=== PATIENT | female | born 1945 ===

== ENCOUNTER 2017-10-08 14:34 | Emergency (ER) | payer MEDICAID ==
[2017-10-08 15:06] VITALS: TEMP 98.6
[2017-10-08] MEDS ORDERED: Sodium Chloride 0.9% 500 ML IV ONE ×2 (15:21→15:59)
[2017-10-08 15:43] LABS: BASO # 0.1 K/uL (0.0-0.2); EOS # 0.2 K/uL (0.0-0.7); EOS % 3.1 % (0.0-4.0); HEMOGLOBIN 11.2 g/dL (11.0-16.0); LYMPH # 4.3 K/uL (1.0-4.3); LYMPH % 60.5 % (20.0-40.0); MEAN CELL VOLUME 91.3 fL (81.0-99.0); MEAN CORPUSCULAR HEMOGLOBIN 29.3 pg (27.0-31.0); MEAN CORPUSCULAR HGB CONC 32.1 g/dL (33.0-37.0); MEAN PLATELET VOLUME 7.5 fL (7.2-11.7); MONO # 0.8 K/uL (0.0-0.8); MONO % 11.2 % (0.0-10.0); NEUT # 1.7 K/uL (1.8-7.0); NEUT % 24.2 % (50.0-75.0); NRBC % 0.1 % (0.0-2.0); RBC 3.81 Mil/uL (3.80-5.20); WHITE BLOOD COUNT 7.1 K/uL (4.8-10.8)
[2017-10-08] MEDS ORDERED: Sodium Chloride 0.9% 0 ML ONE (15:46)
[2017-10-08 15:50] LABS: INR 1.1; PROTHROMBIN TIME 11.5 SECONDS (9.7-12.2)
[2017-10-08 15:54] LABS: ALB/GLOB RATIO 1.2 (1.0-2.1); ALBUMIN 4.3 g/dL (3.5-5.0); ALT/SGPT 38 U/L (9-52); AST/SGOT 25 U/L (14-36); BLOOD UREA NITROGEN 17 mg/dL (7-17); CALCIUM 9.8 mg/dl (8.6-10.4); GFR AFRICAN-AMERICAN > 60; GFR NON-AFRICAN AMERICAN > 60; LIPASE 65 U/L (23-300)
--- NOTE | 2017-10-08 16:15 | C.PDOC ---
History Of Present Illness 72yo female with history of hypertension, diabetes, sent to ER for evaluation of flank pain, dysuria, or nausea x a couple days. Patient denies any chest pain , shortness of breath, weakness, or numbness. She offers no other medical complaints. PMD: Dr. Rossi Time Seen by Provider: 10/08/17 15:17 Chief Complaint (Nursing): Back Pain History Per: Patient History/Exam Limitations: no limitations Onset/Duration Of Symptoms: Days Current Symptoms Are (Timing): Still Present Quality Of Discomfort: "Pain" Associated Symptoms: denies: Incontinence, New Weakness, New Numbness Recent travel outside of the [facility]: Yes Additional History Per: Patient Past Medical History Reviewed: Historical Data, Nursing Documentation, Vital Signs Vital Signs: Last Vital Signs Temp 98.6 F 10/08/17 15:02 Pulse 78 10/08/17 17:15 Resp 16 10/08/17 17:15 BP 134/85 10/08/17 17:15 Pulse Ox 98 10/08/17 17:15 - Medical History PMH: No Chronic Diseases Surgical History: No Surg Hx Family History: States: No Known Family Hx - Social History Hx Alcohol Use: No Hx Substance Use: No - Immunization History Hx Tetanus Toxoid Vaccination: No Hx Influenza Vaccination: Yes Hx Pneumococcal Vaccination: Yes Review Of Systems Constitutional: Negative for: Fever, Chills Cardiovascular: Negative for: Chest Pain Respiratory: Negative for: Shortness of Breath Gastrointestinal: Positive for: Nausea Genitourinary: Positive for: Dysuria Musculoskeletal: Positive for: Back Pain (bilateral flank pain) Physical Exam - Physical Exam Appears: Non-toxic, No Acute Distress Skin: Normal Color, Warm, Dry Head: Normacephalic Eye(s): bilateral: Normal Inspection Neck: Normal ROM, Supple Chest: Symmetrical Cardiovascular: Rhythm Regular Respiratory: Normal Breath Sounds Gastrointestinal/Abdominal: Soft, No Tenderness Back: CVA Tenderness (bilateral), No Vertebral Tenderness Neurological/Psych: Oriented x3 ED Course And Treatment - Laboratory Results Result Diagrams: 10/08/17 15:36 10/08/17 15:36 O2 Sat by Pulse Oximetry: 100 (RA) Pulse Ox Interpretation: Normal Progress Note: CT Abdomen/Pelvis, Labs, and UA ordered. Patient given IV Fluids , Toradol and Zofran. 1652 Labs reviewed, indicates a UTI Disposition - Disposition Referrals: [facility] [Outside] [facility] [Outside] Disposition: HOME/ ROUTINE Disposition Time: 05:00 Condition: GOOD Additional Instructions: follow up with your doctor. return to er with worsening symptoms or concerns. you should take the antibiotics by mouth, but return immediately with any worsening symptoms or concerns for possible iv antibiotics Prescriptions: Cefpodoxime [Vantin] 100 mg PO BID #20 tab Instructions: Urinary Tract Infection, Adult (DC), Flank Pain, Kidney Infection (DC) Forms: [employer] (Bahraini) Print Language: BULGARIAN - Clinical Impression Clinical Impression: UTI (urinary tract infection), Flank pain - Scribe Statement The provider has reviewed the documentation as recorded by the Rosa M Hernandez Provider Attestation: All medical record entries made by the Rosa M were at my direction and personally dictated by me. I have reviewed the chart and agree that the record accurately reflects my personal performance of the history, physical exam, medical decision making, and the department course for this patient. I have also personally directed, reviewed, and agree with the discharge instructions and disposition.
--- NOTE | 2017-10-08 16:33 | CT ---
Date of service: 10/08/2017 PROCEDURE: CT Abdomen and Pelvis without intravenous contrast HISTORY: b/l flank pain COMPARISON: CT scan of the abdomen and pelvis dated 01/22/2011. TECHNIQUE: Contiguous images were obtained from the domes of the diaphragms to the upper thighs without the administration of intravenous contrast. Oral contrast was not administered. Radiation dose: Total exam DLP = 375.3 mGy-cm. This CT exam was performed using one or more of the following dose reduction techniques: Automated exposure control, adjustment of the mA and/or kV according to patient size, and/or use of iterative reconstruction technique. FINDINGS: LOWER THORAX: No focal consolidation or pleural effusion. Heart size normal. Coronary arterial and valvular calcifications. LIVER: Unremarkable. No gross lesion or ductal dilatation. GALLBLADDER AND BILE DUCTS: Unremarkable. PANCREAS: Unremarkable. No gross lesion or ductal dilatation. SPLEEN: Unremarkable. ADRENALS: Unremarkable. No mass. KIDNEYS AND URETERS: Stable nonobstructive 1.2 x 1.0 cm left interpolar calculus. Stable nonobstructive 1.5 x 0.8 cm left lower pole calculus. No hydronephrosis. No solid mass. VASCULATURE: Unremarkable. No aortic aneurysm. BOWEL: Unremarkable. No obstruction. No gross mural thickening. APPENDIX: Unremarkable. Normal appendix. PERITONEUM: Unremarkable. No free fluid. No free air. LYMPH NODES: Unremarkable. No enlarged lymph nodes. BLADDER: Unremarkable. REPRODUCTIVE: Unremarkable. BONES: No acute fracture. OTHER FINDINGS: None. IMPRESSION: Stable large left-sided nonobstructive renal calculi. No obstructive uropathy or evidence of recently passed genitourinary calculus.
[2017-10-08 16:38] LABS: SQUAMOUS EPITHIAL 3 /hpf (0-5); URINE BACTERIA RARE (<OCC); URINE BILIRUBIN NEGATIVE (NEGATIVE); URINE BLOOD 1+ (NEGATIVE); URINE CLARITY Clear (Clear); URINE COLOR Yellow (YELLOW); URINE GLUCOSE (UA) NORMAL (Normal); URINE LEUKOCYTE ESTERASE 3+ Leu/uL (Negative); URINE PROTEIN NEGATIVE (NEGATIVE); URINE UROBILINOGEN NORMAL mg/dL (0.2-1.0)
[2017-10-08] MEDS ORDERED: cefTRIAXone IV 1 gm in Dextros 50 ML IVPB ONE ×2 (16:48→17:06)
[2017-10-08 17:16] VITALS: BP 134/85; PULSE 78; RESP 16
[2017-10-10 16:00] VITALS: O2SAT 100
== END 2017-10-08 17:16 | disposition home or self-care (01) ==
LOC: C.ER 14:34
DX: N39.0 Urinary tract infection, site not specified (principal); R10.9 Unspecified abdominal pain
CPT/HCPCS: 74176; 80053; 81001; 82948; 83690; 85025; 85610; 85730; 87086; 87181; 96361; 96374; 96375; 99284; J0696; J1885; J2405; J7040

== ENCOUNTER 2018-01-21 10:46 | Day surgery (SDC) | payer MEDICAID ==
[2017-11-25 09:53] VITALS: BMI 36.9
[~2018-01-21 10:46] MED LIST: Ciprofloxacin 0.3% OPTH SOLN OD SCH; Cyclopentolate 1% Opth (2 ml) OD SCH; Ketorolac Tromethamine 0.5% Opth Soln (3 ml) OD SCH; Lactated Ringer's 500 ML IV ONE; Lidocaine 2% MPF (5 ml) Inj ONE; Ofloxacin 0.3% Ophth Soln OD SCH; Phenylephrine 2.5% Opht Soln OD SCH; Tropicamide 0.5% Opht Sol OD SCH
[2018-01-21] MEDS ORDERED: Lactated Ringer's 500 ML IV ONE (11:30)
[2018-01-21] MEDS ORDERED: Chondroitin/Hyaluronate Opth Syringe KIT (0.55 ml-0.5 ml) IO ONE (14:01)
[2018-01-21] MEDS ORDERED: Tobramycin/Dexamethasone OPHT OINT ONE (14:01)
[2018-01-21] MEDS ORDERED: Tetracaine 0.5% Ophth (OR ONLY) ONE (14:01)
[2018-01-21] MEDS ORDERED: Tobramycin/Dexamethasone (Tobradex) Opth Sol (2.5 ml) ONE (14:02)
[2018-01-21] MEDS ORDERED: Carbachol 0.01% IO ONE (14:02)
[2018-01-21] MEDS ORDERED: Propofol 10 mg/ml Inj (20 ML) ONE (14:45)
[2018-01-21 14:50] VITALS: RESP 17
[2018-01-21 16:06] VITALS: BP 142/60; PULSE 69; TEMP 97.7; O2SAT 98
--- NOTE | 2018-01-22 13:49 | OP ---
PROCEDURE DATE: 01/21/2018 PREOPERATIVE DIAGNOSIS: Cataract right eye. POSTOPERATIVE DIAGNOSIS: Cataract right eye. OPERATIVE PROCEDURE: Cataract extraction with implant right eye. ANESTHESIA TYPE: Local, standby. SURGEON: Watson Akers MD. COMPLICATIONS: None. PROCEDURE: Local anesthesia was achieved using a mixture of 1% lidocaine and Amphadase. The patient was then prepped and draped in the usual sterile fashion for ophthalmic surgery. Betadine drops were placed into the eye. A lid speculum was used and a sideport incision was made using a 15 degree blade. Viscoelastic was used to fill the anterior chamber and a 2.7 millimeter slit blade was used to create a surgical opening. Additional viscoelastic was placed into the eye and a capsulorrhexis was performed. Hydrodissection and delineation were then carried out. Phacoemulsification of the nucleus was performed with ease and cortical cleanup was achieved without difficulty. The capsular bag was refilled using viscoelastic and a posterior chamber lens was inserted through the existing wound and placed into the capsular bag and easily centered. All viscoelastic was then aspirated from the eye and Miochol was instilled for good symmetric pupillary constriction. The sideport wound was hydrated as necessary and a good watertight closure was observed at the conclusion of the case. A TobraDex soaked collagen shield was then placed over the eye. The lid speculum was removed. TobraDex ointment was placed onto the eye and a patch and shield were placed. The patient tolerated the procedure well. Watson Akers MD
== END 2018-01-21 15:40 | disposition home or self-care (01) ==
LOC: C.SDS 10:46
PROVIDERS: ATTEND Ophthalmology
DX: H25.11 Age-related nuclear cataract, right eye (principal)
CPT/HCPCS: 66984; 82948; J2704; J7120; V2632

== ENCOUNTER 2018-02-28 17:27 | Inpatient (IN) | payer MEDICAID ==
[2018-02-28 17:27] VITALS: BMI 36.9
--- NOTE | 2018-02-28 18:01 | C.PDOC ---
History Of Present Illness 72 y/o female brought in by family for evaluation s/p 3 episodes of syncope since 5:00am this morning. Associated with dizziness. Patient also complains of right-sided neck pain and right shoulder pain that radiate down to the elbow for the past 2-3 days. Patient also states she has been experiencing shivers and chills. She notes during these episodes, her blood sugar was checked at home and found to be low, lowest was 76. Patient states sugar usually averages 200. Family did not check temperature at home. Otherwise family denies any focal weakness, slurred speech, facial droop, SOB, visual loss, vomiting, or other complaints. <Rebecca Ureña - Last Filed: 02/28/18 18:48> History Per: Patient History/Exam Limitations: no limitations Onset/Duration Of Symptoms: Days Current Symptoms Are (Timing): Still Present <Rebecca Ureña - Last Filed: 02/28/18 18:48> <Sohan Olsen - Last Filed: 02/28/18 20:04> Time Seen by Provider: 02/28/18 17:51 Chief Complaint (Nursing): Dizziness/Lightheaded Past Medical History Reviewed: Historical Data, Nursing Documentation, Vital Signs Vital Signs: Last Vital Signs Temp 97.9 F 02/28/18 17:48 Pulse 72 02/28/18 17:48 Resp 18 02/28/18 17:48 BP 154/80 H 02/28/18 17:48 Pulse Ox 96 02/28/18 17:48 - Medical History PMH: HTN, Hypercholesterolemia, Kidney Stones, Chronic Kidney Disease Surgical History: Appendectomy, Endoscopy, Hernia Repair, Family History: States: No Known Family Hx - Social History Hx Alcohol Use: No Hx Substance Use: No - Immunization History Hx Tetanus Toxoid Vaccination: No Hx Influenza Vaccination: Yes Hx Pneumococcal Vaccination: Yes <NiranjanRebecca - Last Filed: 02/28/18 18:48> Vital Signs: Last Vital Signs Temp 97.9 F 02/28/18 17:48 Pulse 72 02/28/18 17:48 Resp 18 02/28/18 17:48 BP 154/80 H 02/28/18 17:48 Pulse Ox 96 02/28/18 18:48 <Sohan Olsen - Last Filed: 02/28/18 20:04> Review Of Systems Except As Marked, All Systems Reviewed And Found Negative. Constitutional: Positive for: Chills, Other ("shivers"). Negative for: Fever Eyes: Negative for: Vision Change Cardiovascular: Negative for: Chest Pain Respiratory: Negative for: Shortness of Breath Gastrointestinal: Negative for: Vomiting, Abdominal Pain, Diarrhea Musculoskeletal: Positive for: Neck Pain, Shoulder Pain Neurological: Positive for: Dizziness, Other (Syncope). Negative for: Weakness, Numbness, Change in Speech, Confusion, Altered Mental Status <Rebecca Ureña - Last Filed: 02/28/18 18:48> Physical Exam - Physical Exam Appears: Non-toxic, No Acute Distress, Other (Anxious appearing) Skin: Normal Color, Warm, Dry Head: Atraumatic, Normacephalic Eye(s): bilateral: Normal Inspection, PERRL, EOMI Oral Mucosa: Moist Neck: Normal ROM, No Midline Cervical Tenderness, No Paracervical Tenderness, Supple Chest: Symmetrical Cardiovascular: Rhythm Regular, No Murmur Respiratory: Normal Breath Sounds, No Rales, No Rhonchi, No Wheezing, Other (NARD) Gastrointestinal/Abdominal: Soft, No Tenderness, No Distention Back: Normal Inspection Extremity: Bilateral: Atraumatic, Normal Color And Temperature, Normal ROM (with good ROM of right shoulder, no bony point tenderness) Pulses: Left Radial: Normal, Right Radial: Normal Neurological/Psych: Oriented x3, Normal Speech, Normal Cranial Nerves, Other (No focal deficits) <Rebecca Ureña - Last Filed: 02/28/18 18:48> ED Course And Treatment ECG: Interpreted By Me, Viewed By Me ECG Rhythm: Sinus Rhythm, L BBB Rate From EC O2 Sat by Pulse Oximetry: 96 (RA) Pulse Ox Interpretation: Normal - Radiology CXR: Interpreted by Me (NEG) <NiranjanRebecca - Last Filed: 02/28/18 18:48> - Laboratory Results Result Diagrams: 02/28/18 19:14 02/28/18 19:14 ECG: Interpreted By Me, Viewed By Me <Sohan Olsen - Last Filed: 02/28/18 20:04> Progress - Data Reviewed Data Reviewed: Lab, Diagnostic imaging, EKG, Old records <NiranjanRebecca Ann-Marie Last Filed: 02/28/18 18:48> NIHSS Stroke Scale - Date/Time Evaluation Performed Date Performed: 02/28/18 Time Performed: 09:10 When Was NIHSS Performed: Baseline - How Severe is the Stroke Level of Consciousness: 0=Alert LOC to Questions: 0=Both comments correct LOC to commands: 0=Obeys both correctly Best Gaze: 0=Normal Visual: 0=No visual loss Facial: 0=Normal Motor Arm - Left: 0=No drift Motor Arm - Right: 0=No drift Motor Leg - Left: 0=No drift Motor Leg - Right: 0=No drift Limb Ataxia: 0=Absent Sensory: 0=Normal Best Language: 0=No aphasia Dysarthia: 0=Normal articulation Extinction & Inattention (Neglect): 0=Normal, no object Score: 0 <Sohan Olsen - Last Filed: 02/28/18 20:04> Medical Decision Making Medical Decision Making: Impression: Dizziness, Syncope Right neck and shoulder pain Plan: --EKG --Blood work --Urinalysis --Chest x-ray --Toradol 30 mg IV --Tramadol 50 mg PO --CT Head without contrast --Reassess <Rebecca Ureña - Last Filed: 02/28/18 18:48> Disposition - Disposition Disposition Time: 18:45 <Rebecca Ureña - Last Filed: 02/28/18 18:48> Discussed With : Carlos TRIPP Present On Arrival: None <Sohan Olsen - Last Filed: 02/28/18 20:04> - Disposition Disposition: HOSPITALIZED Condition: STABLE Forms: [employer] (Brazilian) - Clinical Impression Clinical Impression: Syncope, Diabetes mellitus, Chronic cerebral ischemia, Hypertension, Hyperlipidemia - Scribe Statement The provider has reviewed the documentation as recorded by the Rosa M Werner Provider Attestation: All medical record entries made by the Sulemaibe were at my direction and personally dictated by me. I have reviewed the chart and agree that the record accurately reflects my personal performance of the history, physical exam, medical decision making, and the department course for this patient. I have also personally directed, reviewed, and agree with the discharge instructions and disposition. <Rebecca Ureña - Last Filed: 02/28/18 18:48> Physician Patient Turnover Patient Signed Over To: Sohan Olsen Handoff Comments: FU LABS, CT, DISPO <Rebecca Ureña - Last Filed: 02/28/18 18:48>
--- NOTE | 2018-02-28 18:44 | CT ---
Date of service: 02/28/2018 PROCEDURE: CT HEAD WITHOUT CONTRAST. HISTORY: syncope COMPARISON: None available. TECHNIQUE: Axial computed tomography images were obtained through the head/brain without intravenous contrast. Radiation dose: Total exam DLP = 944.79 mGy-cm. This CT exam was performed using one or more of the following dose reduction techniques: Automated exposure control, adjustment of the mA and/or kV according to patient size, and/or use of iterative reconstruction technique. FINDINGS: HEMORRHAGE: No intracranial hemorrhage. BRAIN: Diffuse atrophy with prominence of the ventricles and sulci noted. No mass effect or edema. Right MCA territory cystic encephalomalacia (temporal and parietal lobes). VENTRICLES: No hydrocephalus. CALVARIUM: Unremarkable. PARANASAL SINUSES: Unremarkable as visualized. No significant inflammatory changes. MASTOID AIR CELLS: Unremarkable as visualized. No inflammatory changes. OTHER FINDINGS: None. IMPRESSION: Right MCA territory (temporal and parietal lobes) encephalomalacia consistent with chronic ischemic infarction. Correlate clinically. Please note that MRI with diffusion imaging is more sensitive in the detection of acute ischemic event.
--- NOTE | 2018-02-28 18:48 | RAD ---
Date of service: 02/28/2018 PROCEDURE: CHEST RADIOGRAPH, 1 VIEW HISTORY: syncope COMPARISON: None available. FINDINGS: LUNGS: Clear. PLEURA: No pneumothorax or pleural fluid seen. CARDIOVASCULAR: Atherosclerotic calcifications identified primarily aortic arch. No radiographic findings to suggest acute or significant cardiovascular disease. OSSEOUS STRUCTURES: No significant abnormalities. VISUALIZED UPPER ABDOMEN: Normal. OTHER FINDINGS: None. IMPRESSION: No active disease. Concordant results with the preliminary interpretation rendered by the emergency department physician procedure.
[2018-02-28 19:34] LABS: BASO # 0.1 K/uL (0.0-0.2); BASO % 1.5 % (0.0-2.0); EOS # 0.1 K/uL (0.0-0.7); EOS % 2.5 % (0.0-4.0); HEMOGLOBIN 10.9 g/dL (11.0-16.0); LYMPH # 2.4 K/uL (1.0-4.3); LYMPH % 51.1 % (20.0-40.0); MEAN CELL VOLUME 91.4 fL (81.0-99.0); MEAN CORPUSCULAR HEMOGLOBIN 29.6 pg (27.0-31.0); MEAN CORPUSCULAR HGB CONC 32.4 g/dL (33.0-37.0); MONO # 0.5 K/uL (0.0-0.8); MONO % 9.7 % (0.0-10.0); NEUT # 1.6 K/uL (1.8-7.0); NEUT % 35.2 % (50.0-75.0); RBC 3.68 Mil/uL (3.80-5.20); RED CELL DISTRIBUTION WIDTH 14.4 % (11.5-14.5); WHITE BLOOD COUNT 4.7 K/uL (4.8-10.8)
[2018-02-28 19:46] LABS: ALB/GLOB RATIO 1.2 (1.0-2.1); ALBUMIN 3.9 g/dL (3.5-5.0); ALT/SGPT 35 U/L (9-52); AST/SGOT 36 U/L (14-36); BLOOD UREA NITROGEN 19 mg/dL (7-17); CALCIUM 9.2 mg/dl (8.6-10.4); GFR NON-AFRICAN AMERICAN > 60
--- NOTE | 2018-02-28 20:26 | CP.PCM.HP ---
History of Present Illness - History of Present Illness History of Present Illness: 72 y/o female brought in by family for evaluation s/p 3 episodes of syncope since 5:00am this morning. Associated with dizziness. Patient also complains of right-sided neck pain and right shoulder pain that radiate down to the elbow for the past 2-3 days. Patient also states she has been experiencing shivers and chills. She notes during these episodes, her blood sugar was checked at home and found to be low, lowest was 76. Patient states sugar usually averages 200. Family did not check temperature at home. Otherwise family denies any focal weakness, slurred speech, facial droop, SOB, visual loss, vomiting, or other complaints. Present on Admission - Present on Admission Any Indicators Present on Admission: No Review of Systems - Review of Systems All systems: reviewed and no additional remarkable complaints except (near syncopy) Past Patient History - Past Medical History & Family History Past Medical History?: Yes - Past Social History Smoking Status: Never Smoked - CARDIAC Hx Hypercholesterolemia: Yes Hx Hypertension: Yes - PULMONARY Hx Respiratory Disorders: No - NEUROLOGICAL Hx Neurological Disorder: No - HEENT Hx HEENT Problems: Yes Hx Cataracts: Yes - RENAL Hx Chronic Kidney Disease: Yes Hx Kidney Stones: Yes - ENDOCRINE/METABOLIC Hx Endocrine Disorders: Yes Hx Diabetes Mellitus Type 2: Yes - HEMATOLOGICAL/ONCOLOGICAL Hx Blood Disorders: No - INTEGUMENTARY Hx Dermatological Problems: Yes (SKIN DISCOLORIZATION ARMS) - MUSCULOSKELETAL/RHEUMATOLOGICAL Hx Musculoskeletal Disorders: Yes Hx Osteoarthritis: Yes - GENITOURINARY/GYNECOLOGICAL Hx Genitourinary Disorders: Yes Hx Urinary Tract Infection: Yes - PSYCHIATRIC Hx Substance Use: No - SURGICAL HISTORY Hx Appendectomy: Yes - ANESTHESIA Hx Anesthesia: Yes Hx Anesthesia Reactions: No Hx Malignant Hyperthermia: No Meds Allergies/Adverse Reactions: Allergies Allergy/AdvReac Type Severity Reaction Status Date / Time No Known Allergies Allergy Verified 02/28/18 17:39 Physical Exam - Head Exam Head Exam: ATRAUMATIC - Eye Exam Eye Exam: EOMI, Normal appearance, PERRL - ENT Exam ENT Exam: Mucous Membranes Moist, Normal Exam - Neck Exam Neck exam: Positive for: Normal Inspection - Respiratory Exam Respiratory Exam: Clear to Auscultation Bilateral, NORMAL BREATHING PATTERN - Cardiovascular Exam Cardiovascular Exam: REGULAR RHYTHM - GI/Abdominal Exam GI & Abdominal Exam: Normal Bowel Sounds, Soft. absent: Tenderness - Extremities Exam Extremities exam: Positive for: normal inspection - Neurological Exam Neurological exam: Alert, CN II-XII Intact, Normal Gait, Oriented x3, Reflexes Normal - Skin Skin Exam: Dry, Intact, Normal Color, Warm Results - Vital Signs Recent Vital Signs: Last Vital Signs Temp 98.2 F 02/28/18 19:34 Pulse 69 02/28/18 19:34 Resp 16 02/28/18 19:34 BP 152/65 H 02/28/18 19:34 Pulse Ox 99 02/28/18 19:34 - Labs Result Diagrams: 02/28/18 19:14 02/28/18 19:14 Labs: Laboratory Results - last 24 hr 02/28/18 02/28/18 02/28/18 17:43 19:14 19:14 WBC 4.7 L RBC 3.68 L Hgb 10.9 L Hct 33.6 L MCV 91.4 MCH 29.6 MCHC 32.4 L RDW 14.4 Plt Count 265 MPV 8.0 Neut % (Auto) 35.2 L Lymph % (Auto) 51.1 H [place] % (Auto) 9.7 Eos % (Auto) 2.5 Baso % (Auto) 1.5 Neut # (Auto) 1.6 L Lymph # (Auto) 2.4 [place] # (Auto) 0.5 Eos # (Auto) 0.1 Baso # (Auto) 0.1 Sodium 137 Potassium 4.5 Chloride 106 Carbon Dioxide 24 Anion Gap 12 BUN 19 H Creatinine 0.8 Est GFR ( Amer) > 60 Est GFR (Non-Af Amer) > 60 POC Glucose (mg/dL) 222 H Random Glucose 203 H Calcium 9.2 Total Bilirubin 0.4 AST 36 D ALT 35 Alkaline Phosphatase 77 Troponin I 0.0120 Total Protein 7.1 Albumin 3.9 Globulin 3.2 Albumin/Globulin Ratio 1.2 Assessment & Plan (1) Syncope Status: Acute (2) Diabetes mellitus Status: Chronic (3) Hyperlipidemia Status: Chronic (4) Hypertension Status: Chronic
[2018-02-28] MEDS ORDERED: Home Med 1 UNIT (Atorvastatin Calcium [Atorvastatin Calcium] 20 MG) PO SCH (22:00)
[2018-02-28] MEDS: (Novolin R) Insulin Human Regular 100 units/ml vial SC SCH (22:42)
[2018-02-28] MEDS: Insulin Detemir 100 units/ml Vial (Levemir) SC SCH (22:42)
[2018-02-28] MEDS ORDERED: Pneumococcal 23-Valent Vaccine IM ONE (23:08)
[2018-03-01 02:32] VITALS: RESP 20
[2018-03-01 06:43] LABS: BASO % 0.7 % (0.0-2.0); EOS # 0.2 K/uL (0.0-0.7); EOS % 3.1 % (0.0-4.0); HEMOGLOBIN 11.8 g/dL (11.0-16.0); LYMPH # 3.2 K/uL (1.0-4.3); LYMPH % 62.9 % (20.0-40.0); MEAN CELL VOLUME 92.3 fL (81.0-99.0); MEAN CORPUSCULAR HEMOGLOBIN 30.3 pg (27.0-31.0); MEAN CORPUSCULAR HGB CONC 32.8 g/dL (33.0-37.0); MEAN PLATELET VOLUME 7.9 fL (7.2-11.7); MONO # 0.5 K/uL (0.0-0.8); MONO % 10.4 % (0.0-10.0); NEUT # 1.1 K/uL (1.8-7.0); NEUT % 22.9 % (50.0-75.0); RBC 3.89 Mil/uL (3.80-5.20); RED CELL DISTRIBUTION WIDTH 14.5 % (11.5-14.5)
[2018-03-01 06:59] LABS: ALB/GLOB RATIO 1.2 (1.0-2.1); ALBUMIN 3.9 g/dL (3.5-5.0); ALT/SGPT 32 U/L (9-52); AST/SGOT 27 U/L (14-36); BLOOD UREA NITROGEN 19 mg/dL (7-17); CALCIUM 8.7 mg/dl (8.6-10.4); GFR NON-AFRICAN AMERICAN > 60
[2018-03-01] MEDS: (Novolin R) Insulin Human Regular 100 units/ml vial SC SCH ×4 (08:46→21:20)
[2018-03-01] MEDS ORDERED: Gadodiamide 287 mg/ml 20 ml IV ONE (10:30)
[2018-03-01] MEDS: Aspirin 325 mg EC Tablets PO SCH (11:24)
--- NOTE | 2018-03-01 12:15 | MRI ---
Date of service: 03/01/2018 PROCEDURE: MRI BRAIN WITH AND WITHOUT CONTRAST HISTORY: Chronic Ischemic Cerebral Infarct COMPARISON: Comparison is made to the previous CT dated 02/28/2018 TECHNIQUE: Multiplanar, multisequence MR images of the brain were obtained with and without intravenous contrast enhancement. FINDINGS: HEMORRHAGE: None DWI: No evidence of an acute or early subacute infarction. BRAIN PARENCHYMA: Encephalomalacia is again noted at the right temporal parietal lobe consistent with old right MCA territory infarct. Adjacent mild edema is also noted. Mild volume loss. ENHANCEMENT: No abnormal intracranial enhancement. VENTRICLES: Unremarkable. No hydrocephalus. CRANIUM: Unremarkable. ORBITS: Grossly unremarkable. PARANASAL SINUSES/MASTOIDS: Clear VASCULAR SYSTEM: Skull base flow voids intact. OTHER FINDINGS: None . IMPRESSION: No evidence of acute intracranial hemorrhage or acute infarct. Redemonstrated is encephalomalacia at the right cerebral hemisphere suggestive of old right MCA territory infarct. No evidence of enhancing mass lesion mass effect or midline shift.
--- NOTE | 2018-03-01 15:08 | CP.PCM.PN ---
Subjective - Date & Time of Evaluation Date of Evaluation: 03/01/18 Time of Evaluation: 15:07 - Subjective Subjective: No specific complaints. Vital signs are stable. Physical examination is normal. MRI of the brain shows no acute infarct or hemorrhage. Awaiting cardiac and further neuro workup Objective - Vital Signs/Intake and Output Vital Signs (last 24 hours): Temp Pulse Resp BP Pulse Ox 97.9 F 65 20 137/65 97 03/01/18 07:00 03/01/18 12:13 03/01/18 07:00 03/01/18 07:00 03/01/18 07:00 - Medications Medications: Current Medications Aspirin (Ecotrin) 325 mg PO DAILY [facility] Last Admin: 03/01/18 11:24 Dose: 325 mg Clopidogrel Bisulfate (Plavix) 75 mg PO DAILY [facility] Last Admin: 03/01/18 11:24 Dose: 75 mg Insulin Detemir (Levemir) 10 unit [facility] Last Admin: 02/28/18 22:42 Dose: 10 units Insulin Human Regular (Novolin R) 0 unit SC [facility]; Protocol Last Admin: 03/01/18 12:55 Dose: Not Given Lisinopril (Zestril) 5 mg PO DAILY [facility] Last Admin: 03/01/18 11:23 Dose: 5 mg Pneumococcal Polyvalent Vaccine (Pneumovax 23 Vaccine) 0.5 ml IM .ONCE ONE Stop: 03/02/18 10:01 Rosuvastatin Calcium (Crestor) 10 mg PO HS [facility] Last Admin: 02/28/18 22:38 Dose: 10 mg - Labs Labs: 03/01/18 06:22 03/01/18 06:22 Assessment and Plan (1) Syncope Status: Acute (2) Diabetes mellitus Status: Chronic (3) Hyperlipidemia Status: Chronic (4) Hypertension Status: Chronic
--- NOTE | 2018-03-01 17:31 | CARD ---
APPROVED REPORT Date of service: 02/28/2018 EKG Measurement Heart [id number] <Conclusion> Normal sinus rhythm Left bundle branch block Abnormal ECG
[2018-03-01] MEDS: Insulin Detemir 100 units/ml Vial (Levemir) SC SCH (21:49)
[2018-03-02 09:43] LABS: BASO # 0.1 K/uL (0.0-0.2); BASO % 1.8 % (0.0-2.0); EOS # 0.1 K/uL (0.0-0.7); EOS % 2.8 % (0.0-4.0); HEMOGLOBIN 11.7 g/dL (11.0-16.0); LYMPH # 2.5 K/uL (1.0-4.3); LYMPH % 56.4 % (20.0-40.0); MEAN CORPUSCULAR HEMOGLOBIN 30.1 pg (27.0-31.0); MEAN CORPUSCULAR HGB CONC 32.8 g/dL (33.0-37.0); MEAN PLATELET VOLUME 8.1 fL (7.2-11.7); MONO # 0.4 K/uL (0.0-0.8); MONO % 7.9 % (0.0-10.0); NEUT # 1.4 K/uL (1.8-7.0); NEUT % 31.1 % (50.0-75.0); RBC 3.88 Mil/uL (3.80-5.20); RED CELL DISTRIBUTION WIDTH 14.2 % (11.5-14.5); WHITE BLOOD COUNT 4.4 K/uL (4.8-10.8)
[2018-03-02] MEDS: (Novolin R) Insulin Human Regular 100 units/ml vial SC SCH ×4 (09:52→21:36)
[2018-03-02] MEDS: Aspirin 325 mg EC Tablets PO SCH (09:53)
[2018-03-02 09:58] LABS: ALB/GLOB RATIO 1.2 (1.0-2.1); ALBUMIN 4.1 g/dL (3.5-5.0); ALT/SGPT 37 U/L (9-52); AST/SGOT 32 U/L (14-36); BLOOD UREA NITROGEN 18 mg/dL (7-17); CALCIUM 8.8 mg/dl (8.6-10.4); GFR NON-AFRICAN AMERICAN > 60
[2018-03-02] MEDS ORDERED: Pneumococcal 23-Valent Vaccine IM ONE (10:00)
--- NOTE | 2018-03-02 15:14 | CP.PCM.HP ---
History of Present Illness - History of Present Illness History of Present Illness: MRI of the brain is negative. Awaiting further neurocardiac workup Past Patient History - Past Medical History & Family History Past Medical History?: Yes - Past Social History Smoking Status: Never Smoked - CARDIAC Hx Hypercholesterolemia: Yes Hx Hypertension: Yes - PULMONARY Hx Respiratory Disorders: No - NEUROLOGICAL Hx Neurological Disorder: No - HEENT Hx HEENT Problems: Yes Hx Cataracts: Yes - RENAL Hx Chronic Kidney Disease: Yes Hx Kidney Stones: Yes - ENDOCRINE/METABOLIC Hx Endocrine Disorders: Yes Hx Diabetes Mellitus Type 2: Yes - HEMATOLOGICAL/ONCOLOGICAL Hx Blood Disorders: No - INTEGUMENTARY Hx Dermatological Problems: Yes (SKIN DISCOLORIZATION ARMS) - MUSCULOSKELETAL/RHEUMATOLOGICAL Hx Musculoskeletal Disorders: Yes Hx Osteoarthritis: Yes - GENITOURINARY/GYNECOLOGICAL Hx Genitourinary Disorders: Yes Hx Urinary Tract Infection: Yes - PSYCHIATRIC Hx Substance Use: No - SURGICAL HISTORY Hx Appendectomy: Yes - ANESTHESIA Hx Anesthesia: Yes Hx Anesthesia Reactions: No Hx Malignant Hyperthermia: No Meds Allergies/Adverse Reactions: Allergies Allergy/AdvReac Type Severity Reaction Status Date / Time No Known Allergies Allergy Verified 02/28/18 17:39 Results - Vital Signs Recent Vital Signs: Last Vital Signs Temp 98.2 F 03/02/18 07:00 Pulse 62 03/02/18 08:00 Resp 20 03/02/18 07:00 BP 152/66 H 03/02/18 07:00 Pulse Ox 98 03/02/18 07:00 - Labs Result Diagrams: 03/02/18 09:35 03/02/18 09:35 Labs: Laboratory Results - last 24 hr 03/01/18 03/01/18 03/02/18 17:19 21:11 00:04 WBC RBC Hgb Hct MCV MCH MCHC RDW Plt Count MPV Neut % (Auto) Lymph % (Auto) [place] % (Auto) Eos % (Auto) Baso % (Auto) Neut # (Auto) Lymph # (Auto) [place] # (Auto) Eos # (Auto) Baso # (Auto) Sodium Potassium Chloride Carbon Dioxide Anion Gap BUN Creatinine Est GFR ( Amer) Est GFR (Non-Af Amer) POC Glucose (mg/dL) 263 H 255 H 247 H Random Glucose Calcium Total Bilirubin AST ALT Alkaline Phosphatase Total Protein Albumin Globulin Albumin/Globulin Ratio 03/02/18 03/02/18 03/02/18 06:17 09:35 09:35 WBC 4.4 L RBC 3.88 Hgb 11.7 Hct 35.7 MCV 92.0 MCH 30.1 MCHC 32.8 L RDW 14.2 Plt Count 272 MPV 8.1 Neut % (Auto) 31.1 L Lymph % (Auto) 56.4 H [place] % (Auto) 7.9 Eos % (Auto) 2.8 Baso % (Auto) 1.8 Neut # (Auto) 1.4 L Lymph # (Auto) 2.5 [place] # (Auto) 0.4 Eos # (Auto) 0.1 Baso # (Auto) 0.1 Sodium 135 Potassium 4.2 Chloride 98 Carbon Dioxide 27 Anion Gap 14 BUN 18 H Creatinine 0.8 Est GFR ( Amer) > 60 Est GFR (Non-Af Amer) > 60 POC Glucose (mg/dL) 178 H Random Glucose 304 H Calcium 8.8 Total Bilirubin 0.4 AST 32 ALT 37 Alkaline Phosphatase 87 Total Protein 7.7 Albumin 4.1 Globulin 3.5 Albumin/Globulin Ratio 1.2 03/02/18 11:38 WBC RBC Hgb Hct MCV MCH MCHC RDW Plt Count MPV Neut % (Auto) Lymph % (Auto) [place] % (Auto) Eos % (Auto) Baso % (Auto) Neut # (Auto) Lymph # (Auto) [place] # (Auto) Eos # (Auto) Baso # (Auto) Sodium Potassium Chloride Carbon Dioxide Anion Gap BUN Creatinine Est GFR ( Amer) Est GFR (Non-Af Amer) POC Glucose (mg/dL) 238 H Random Glucose Calcium Total Bilirubin AST ALT Alkaline Phosphatase Total Protein Albumin Globulin Albumin/Globulin Ratio Assessment & Plan (1) Syncope Status: Acute (2) Diabetes mellitus Status: Chronic (3) Hyperlipidemia Status: Chronic (4) Hypertension Status: Chronic
[2018-03-02] MEDS: Insulin Detemir 100 units/ml Vial (Levemir) SC SCH (21:36)
[2018-03-03] MEDS: Aspirin 325 mg EC Tablets PO SCH (09:16)
[2018-03-03] MEDS: (Novolin R) Insulin Human Regular 100 units/ml vial SC SCH ×4 (09:16→21:33)
--- NOTE | 2018-03-03 12:02 | CARD ---
APPROVED REPORT Date of service: 03/01/2018 EXAM: Two-dimensional and M-mode echocardiogram with Doppler and color Doppler. Other Information Quality : GoodRhythm : INDICATION Murmur Syncope 2D DIMENSIONS LA Bnursg60 (18-58mL) M-Mode DIMENSIONS Left Atrium (MM)2.86 (2.5-4.0cm)IVSd0.81 (0.7-1.1cm) Aortic Root2.51 (2.2-3.7cm)LVDd5.24 (4.0-5.6cm) Aortic Cusp Exc.1.40 (1.5-2.0cm)PWd0.85 (0.7-1.1cm) FS (%) 36 %LVDs3.35 (2.0-3.8cm) LVEF (%)65 (>50%) Aortic Valve AoV Peak Yykwdobn808.6cm/Madeleine Peak GR.7mmHg Mitral Valve MV E Mmswiaiu89.9cm/sMV A Zhyuhwwq233.2cm/sE/A ratio0.8 TDI Lateral E' Peak V6.42cm/sMedial E' Peak V5.64cm/sE/Lateral E'14.6 E/Medial E'16.6 Tricuspid Valve TR Peak Fescapzs046nu/sTR Peak Gr.56idBfEPCF20vtNm LEFT VENTRICLE The left ventricle is normal size. There is normal left ventricular wall thickness. Left ventricle systolic function is normal. The Ejection Fraction is 60-65%. There is normal LV segmental wall motion. Transmitral Doppler flow pattern is Grade I-abnormal relaxation pattern. There is no ventricular septal defect visualized. RIGHT VENTRICLE The right ventricle is normal size. The right ventricular systolic function is normal. ATRIA The left atrium is borderline dilated. The right atrium size is normal. AORTIC VALVE The aortic valve is mildly sclerotic. The aortic valve is tri-cuspid. There is trace aortic regurgitation. There is no aortic valvular stenosis. MITRAL VALVE Mitral annular calcification is borderline. There is no evidence of mitral valve prolapse. Mitral regurgitation is trace. TRICUSPID VALVE The tricuspid valve is normal in structure. There is trace tricuspid regurgitation. Right ventricular systolic pressure is estimated at less than 30 mmHg. There is no pulmonary hypertension. PULMONIC VALVE The pulmonic valve is not well visualized. There is trace pulmonic valvular regurgitation. GREAT VESSELS The aortic root is normal in size. The ascending aorta is normal in size. The IVC is normal in size and collapses >50% with inspiration. PERICARDIAL EFFUSION There is no pericardial effusion. <Conclusion> Left ventricle systolic function is normal. The Ejection Fraction is 60-65%. Transmitral Doppler flow pattern is Grade I-abnormal relaxation pattern. There is trace aortic regurgitation. Mitral regurgitation is trace.
[2018-03-03] MEDS ORDERED: Iodixanol 320 MG/ML 100 ML BOTTLE IV ONE (13:20)
--- NOTE | 2018-03-03 14:35 | CP.PCM.PN ---
Subjective - Date & Time of Evaluation Date of Evaluation: 03/03/18 Time of Evaluation: 14:27 - Subjective Subjective: No specific complaints Vital signs are stable Neurological no deficit. Cardio neuro workup in progress Objective - Vital Signs/Intake and Output Vital Signs (last 24 hours): Temp Pulse Resp BP Pulse Ox 97.5 F L 76 20 128/67 97 03/03/18 07:00 03/03/18 13:34 03/03/18 07:00 03/03/18 07:00 03/03/18 13:34 - Medications Medications: Current Medications Acetaminophen (Tylenol 325mg Tab) 650 mg PO Q6 PRN PRN Reason: Pain, moderate (4-7) Last Admin: 03/02/18 15:12 Dose: 650 mg Aspirin (Ecotrin) 325 mg PO DAILY [facility] Last Admin: 03/03/18 09:16 Dose: 325 mg Clopidogrel Bisulfate (Plavix) 75 mg PO DAILY [facility] Last Admin: 03/03/18 09:16 Dose: 75 mg Insulin Detemir (Levemir) 10 unit SC [facility] Last Admin: 03/02/18 21:36 Dose: 10 units Insulin Human Regular (Novolin R) 0 unit SC [facility]; Protocol Last Admin: 03/03/18 12:07 Dose: 6 units Lisinopril (Zestril) 5 mg PO DAILY [facility] Last Admin: 03/03/18 09:16 Dose: 5 mg Rosuvastatin Calcium (Crestor) 10 mg PO HS [facility] Last Admin: 03/02/18 21:37 Dose: 10 mg - Labs Labs: 03/02/18 09:35 03/02/18 09:35 Assessment and Plan (1) Syncope Status: Acute (2) Diabetes mellitus Status: Chronic (3) Hyperlipidemia Status: Chronic (4) Hypertension Status: Chronic
--- NOTE | 2018-03-03 14:43 | CT ---
Date of service: 03/03/2018 PROCEDURE: CT Angiography of the neck with contrast HISTORY: Chronic Ischemic Cerebral Infarct COMPARISON: CT 02/28/2018 TECHNIQUE: Contiguous axial images of the neck were obtained from the level of the skull-base to the superior mediastinum in the arteriographic phase of enhancement. Coronal and sagittal reformats or also generated. IV contrast dose: 100 cc of Visipaque Radiation dose: Total exam DLP = 528.92 mGy-cm. This CT exam was performed using one or more of the following dose reduction techniques: Automated exposure control, adjustment of the mA and/or kV according to patient size, and/or use of iterative reconstruction technique. FINDINGS: RIGHT CAROTID ARTERIES: Common Carotid Artery: Normal. Carotid Bifurcation: Normal. Internal Carotid Artery:Mild stenosis at the origin of the internal carotid External Carotid Artery (proximal branches): Normal. LEFT CAROTID ARTERIES: Common Carotid Artery: Normal. Carotid Bifurcation: Normal. Internal Carotid Artery:Mild stenosis at the origin of the internal carotid External Carotid Artery (proximal branches): Normal. VERTEBRAL ARTERIES: Right Vertebral Artery: Normal. Left Vertebral Artery: Normal. OTHER FINDINGS: no aortic atherosclerotic calcification or mural plaque present. IMPRESSION: Mild stenosis at the origin of the internal carotids bilaterally. CT Angiography of the Brain. HISTORY: Chronic Ischemic Cerebral Infarct COMPARISON: None available. TECHNIQUE: CT angiography of the intracranial arteries was performed. Coronal and sagittal maximum intensity projection reformated images were generated. Radiation dose: Total exam DLP = 528.92 mGy-cm. This CT exam was performed using one or more of the following dose reduction techniques: Automated exposure control, adjustment of the mA and/or kV according to patient size, and/or use of iterative reconstruction technique. FINDINGS: INTERNAL CEREBRAL ARTERIES: Unremarkable. The skull base, petrous, cavernous and supraclinoid segments are bilaterally widely patent. ANTERIOR CEREBRAL ARTERIES: Unremarkable. A1 and A2 segments are widely patent. Smaller distal branches unremarkable, as visualized. MIDDLE CEREBRAL ARTERIES: Unremarkable. M1 and M2 segments are widely patent. Perisylvian branches grossly symmetric. POSTERIOR CIRCULATION: Basilar Artery: Unremarkable. Distal Vertebral Arteries: Unremarkable. Posterior Cerebral Arteries: Unremarkable. Posterior Inferior Cerebellar Arteries: Unremarkable. ANEURYSM/ VASCULAR MALFORMATIONS: None. OTHER FINDINGS: Chronic infarct in the right temporal and parietal lobes IMPRESSION: Unremarkable CT Angiography of the Brain.
[2018-03-03] MEDS: Insulin Detemir 100 units/ml Vial (Levemir) SC SCH (22:06)
[2018-03-04] MEDS: (Novolin R) Insulin Human Regular 100 units/ml vial SC SCH ×3 (08:36→16:59)
[2018-03-04] MEDS: Aspirin 325 mg EC Tablets PO SCH (09:08)
--- NOTE | 2018-03-04 14:14 | CP.PCM.DIS ---
Provider - Provider Date of Admission: 02/28/18 20:00 Attending physician: Carlos Felton MD Time Spent in preparation of Discharge (in minutes): 30 Diagnosis - Discharge Diagnosis (1) Syncope Status: Acute (2) Diabetes mellitus Status: Chronic (3) Hyperlipidemia Status: Chronic (4) Hypertension Status: Chronic Hospital Course - Lab Results Lab Results: Most Recent Lab Values WBC 4.4 K/uL (4.8-10.8) L 03/02/18 09:35 RBC 3.88 Mil/uL (3.80-5.20) 03/02/18 09:35 Hgb 11.7 g/dL (11.0-16.0) 03/02/18 09:35 Hct 35.7 % (34.0-47.0) 03/02/18 09:35 MCV 92.0 fL (81.0-99.0) 03/02/18 09:35 MCH 30.1 pg (27.0-31.0) 03/02/18 09:35 MCHC 32.8 g/dL (33.0-37.0) L 03/02/18 09:35 RDW 14.2 % (11.5-14.5) 03/02/18 09:35 Plt Count 272 K/uL (130-400) 03/02/18 09:35 MPV 8.1 fL (7.2-11.7) 03/02/18 09:35 Neut % (Auto) 31.1 % (50.0-75.0) L 03/02/18 09:35 Lymph % (Auto) 56.4 % (20.0-40.0) H 03/02/18 09:35 [place] % (Auto) 7.9 % (0.0-10.0) 03/02/18 09:35 Eos % (Auto) 2.8 % (0.0-4.0) 03/02/18 09:35 Baso % (Auto) 1.8 % (0.0-2.0) 03/02/18 09:35 Neut # (Auto) 1.4 K/uL (1.8-7.0) L 03/02/18 09:35 Lymph # (Auto) 2.5 K/uL (1.0-4.3) 03/02/18 09:35 [place] # (Auto) 0.4 K/uL (0.0-0.8) 03/02/18 09:35 Eos # (Auto) 0.1 K/uL (0.0-0.7) 03/02/18 09:35 Baso # (Auto) 0.1 K/uL (0.0-0.2) 03/02/18 09:35 D-Dimer, Quantitative 429 ng/mlDDU (0-243) H 02/28/18 20:18 Sodium 135 mmol/L (132-148) 03/02/18 09:35 Potassium 4.2 mmol/L (3.6-5.2) 03/02/18 09:35 Chloride 98 mmol/L (98-107) 03/02/18 09:35 Carbon Dioxide 27 mmol/L (22-30) 03/02/18 09:35 Anion Gap 14 (10-20) 03/02/18 09:35 BUN 18 mg/dL (7-17) H 03/02/18 09:35 Creatinine 0.8 mg/dL (0.7-1.2) 03/02/18 09:35 Est GFR ( Amer) > 60 03/02/18 09:35 Est GFR (Non-Af Amer) > 60 03/02/18 09:35 POC Glucose (mg/dL) 331 mg/dL (65-110) H 03/04/18 11:07 Random Glucose 304 mg/dL (65-105) H 03/02/18 09:35 Calcium 8.8 mg/dl (8.6-10.4) 03/02/18 09:35 Phosphorus 3.5 mg/dL (2.5-4.5) 03/01/18 06:22 Magnesium 1.9 mg/dL (1.6-2.3) 03/01/18 06:22 Total Bilirubin 0.4 mg/dL (0.2-1.3) 03/02/18 09:35 AST 32 U/L (14-36) 03/02/18 09:35 ALT 37 U/L (9-52) 03/02/18 09:35 Alkaline Phosphatase 87 U/L (38-126) 03/02/18 09:35 Troponin I 0.0120 ng/mL (0.00-0.120) 02/28/18 19:14 Total Protein 7.7 g/dL (6.3-8.3) 03/02/18 09:35 Albumin 4.1 g/dL (3.5-5.0) 03/02/18 09:35 Globulin 3.5 gm/dL (2.2-3.9) 03/02/18 09:35 Albumin/Globulin Ratio 1.2 (1.0-2.1) 03/02/18 09:35 - Hospital Course Hospital Course: 72 y/o female brought in by family for evaluation s/p 3 episodes of syncope since 5:00am this morning. Associated with dizziness. Patient also complains of right-sided neck pain and right shoulder pain that radiate down to the elbow for the past 2-3 days. Patient also states she has been experiencing shivers and chills. She notes during these episodes, her blood sugar was checked at home and found to be low, lowest was 76. Patient states sugar usually averages 200. Family did not check temperature at home. Otherwise family denies any focal weakness, slurred speech, facial droop, SOB, visual loss, vomiting, or other complaints. Patient was admitted on telemetry. Cardiac workup was negative echocardiogram showed left ventral ejection fraction of 65% with no wall motion abnormality. Neurological workup showed MRI chronic infarct on the right side CT angiogram of the head and neck was unremarkable except for old infarct in the right cerebral hemisphere. Patient had no further syncope dizziness in the hospital vital signs are stable. Patient is stable will be discharged and followed as an outpatient. Discharge Exam - Head Exam Head Exam: ATRAUMATIC Discharge Plan - Follow Up Plan Condition: STABLE Disposition: HOME/ ROUTINE
[2018-03-04 15:42] VITALS: BP 116/54; PULSE 66; TEMP 98; O2SAT 100
== END 2018-03-04 17:58 | disposition home or self-care (01) | DRG 141 ==
LOC: C.ER 17:27 → C.6T 20:00
PROVIDERS: ADMIT Internal Medicine Cardiovascular Disease; ATTEND Internal Medicine Cardiovascular Disease
DX: R55 Syncope and collapse (principal); N18.9 Chronic kidney disease, unspecified; E11.22 Type 2 diabetes mellitus with diabetic chronic kidney disease; I67.82 Cerebral ischemia; I12.9 Hypertensive chronic kidney disease with stage 1 through stage 4 chronic kidney disease, or unspecified chronic kidney disease; E78.5 Hyperlipidemia, unspecified; E78.00 Pure hypercholesterolemia, unspecified; Z87.442 Personal history of urinary calculi; Z90.49 Acquired absence of other specified parts of digestive tract; Z87.440 Personal history of urinary (tract) infections; M19.90 Unspecified osteoarthritis, unspecified site